=== PATIENT | female | born 2000 | race African-American/Black ===

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

== ENCOUNTER 2021-01-04 00:02 | Emergency (ER) | payer BC, OTHER ==
[~2021-01-04] VITALS: Ht 160 cm; Wt 86.2 kg
[~2021-01-04 00:02] MED LIST changes: +REGLAN 10 MG TA10 MG PO
[2021-01-04 01:07] LABS: HEMATOCRIT 52.3 % (37.0-47.0); MCHC 32.5 g/dL (28.0-37.0); MCV 92.5 fL (80.0-100.0); PLATELET COUNT 396 thou/uL (150-400); RBC 5.66 mil/uL (4.20-5.00); RDW 13.6 % (10.5-14.5); WBC 20.5 thou/uL (4.0-11.0)
[2021-01-04 01:12] LABS: CALCIUM 10.3 mg/dL (8.5-10.1); POTASSIUM 5.5 mmol/L (3.5-5.1)
[2021-01-04 01:49] LABS: ABSOLUTE NEUTROPHILS 18.7 thou/uL (1.4-8.2); ANISOCYTOSIS 1+; PLATELET ESTIMATE NORMAL; POIKILOCYTOSIS 1+
[2021-01-04] MEDS ORDERED: APAP W/CODEINE1 TA2 PO (03:18)
[2021-01-04] MEDS ORDERED: ONDANSETRON HCL4 M2 PO (03:18)
[2021-01-04 03:23] VITALS: BP 112/75
== END 2021-01-04 03:23 | disposition home or self-care (01) ==
LOC: ER 00:02
PROVIDERS: Emergency Medicine
DX: R10.13 Epigastric pain (principal); E10.9 Type 1 diabetes mellitus without complications; Z90.49 Acquired absence of other specified parts of digestive tract; Z79.4 Long term (current) use of insulin; Z79.899 Other long term (current) drug therapy; Z88.6 Allergy status to analgesic agent

== ENCOUNTER 2021-01-05 23:51 | Emergency (ER) | payer BC, OTHER ==
[~2021-01-05] VITALS: Ht 167.6 cm; Wt 68.0 kg
[~2021-01-05 23:51] MED LIST changes: +APAP W/CODEINE1 TA2 PO; +ONDANSETRON HCL4 M2 PO
[2021-01-06 00:50] VITALS: BP 106/54
[2021-01-06 01:44] LABS: CALCIUM 9.9 mg/dL (8.5-10.1); CREATININE 0.7 mg/dL (0.6-1.0); POTASSIUM 3.7 mmol/L (3.5-5.1)
[2021-01-06 01:50] LABS: ALBUMIN 4.7 g/dL (3.4-5.0); TOTAL BILIRUBIN 1.2 mg/dL (0.2-1.0); TOTAL PROTEIN 9.1 g/dL (6.4-8.2)
[2021-01-06 02:43] LABS: ABSOLUTE NEUTROPHILS 9.8 thou/uL (1.4-8.2); BASOPHILS 0.8 % (0.0-2.0); HEMATOCRIT 41.2 % (37.0-47.0); LYMPHOCYTES 6.7 % (24.0-44.0); MCH 30.5 pg (26.0-34.0); MCV 89.6 fL (80.0-100.0); MONOCYTES 1.2 % (1.0-8.0); POLYS 91.3 % (36.0-66.0); RDW 13.5 % (10.5-14.5); WBC 10.8 thou/uL (4.0-11.0)
[2021-01-06 02:50] LABS: PLATELET COUNT 320 thou/uL (150-400)
[2021-01-06] MEDS ORDERED: XANAX 0.25 MG0.25 MG PO (03:32)
== END 2021-01-06 03:58 | disposition home or self-care (01) ==
LOC: ER 23:51
PROVIDERS: Emergency Medicine
DX: R11.10 Vomiting, unspecified (principal); E10.9 Type 1 diabetes mellitus without complications; Z79.899 Other long term (current) drug therapy; Z88.6 Allergy status to analgesic agent

== ENCOUNTER 2021-01-15 18:07 | Emergency (ER) | payer BC, OTHER ==
[~2021-01-15] VITALS: Ht 160 cm; Wt 81.7 kg
[~2021-01-15 18:07] MED LIST changes: +XANAX 0.25 MG0.25 MG PO
[2021-01-15 19:05] LABS: CALCIUM 9.8 mg/dL (8.5-10.1); CREATININE 0.6 mg/dL (0.6-1.0)
[2021-01-15 19:11] LABS: ALBUMIN 4.5 g/dL (3.4-5.0); DIRECT BILIRUBIN 0.1 mg/dL (<0.1-0.2); TOTAL BILIRUBIN 0.5 mg/dL (0.2-1.0); TOTAL PROTEIN 8.1 g/dL (6.4-8.2)
[2021-01-15 19:19] LABS: POTASSIUM 4.2 mmol/L (3.5-5.1)
[2021-01-15 20:44] LABS: HEMATOCRIT 42.4 % (37.0-47.0); HEMOGLOBIN 14.5 gm/dL (12.0-15.0); LYMPHOCYTES 3.9 % (24.0-44.0); MCHC 34.3 g/dL (28.0-37.0); MCV 90.3 fL (80.0-100.0); MONOCYTES 0.9 % (1.0-8.0); PLATELET COUNT 320 thou/uL (150-400); POLYS 95.2 % (36.0-66.0); RBC 4.69 mil/uL (4.20-5.00); RDW 13.6 % (10.5-14.5)
[2021-01-15] MEDS ORDERED: REGLAN 10 MG TA10 MG PO (22:19)
[2021-01-15] MEDS ORDERED: ZOFRAN ODT4 MG PO (22:19)
[2021-01-15 22:41] VITALS: BP 95/56
== END 2021-01-15 22:30 | disposition home or self-care (01) ==
LOC: ER 18:07
PROVIDERS: Nurse Practitioner
DX: R10.84 Generalized abdominal pain (principal); R11.2 Nausea with vomiting, unspecified; F12.90 Cannabis use, unspecified, uncomplicated; E10.9 Type 1 diabetes mellitus without complications; Z88.6 Allergy status to analgesic agent; Z90.49 Acquired absence of other specified parts of digestive tract; Z86.718 Personal history of other venous thrombosis and embolism

== ENCOUNTER 2021-04-05 16:19 | Inpatient (IN) | payer BC, OTHER ==
[~2021-04-05] VITALS: Ht 160 cm; Wt 68.5 kg
[~2021-04-05 16:19] MED LIST changes: +ZOFRAN ODT4 MG PO
[2021-04-05 17:02] VITALS: BP 154/103
[2021-04-05 18:49] LABS: ABSOLUTE NEUTROPHILS 11.1 thou/uL (1.4-8.2); BASOPHILS 0.5 % (0.0-2.0); HEMATOCRIT 47.8 % (37.0-47.0); HEMOGLOBIN 16.2 gm/dL (12.0-15.0); LYMPHOCYTES 10.1 % (24.0-44.0); MCH 31.7 pg (26.0-34.0); MCV 93.1 fL (80.0-100.0); MONOCYTES 4.4 % (1.0-8.0); PLATELET COUNT 384 thou/uL (150-400); RBC 5.13 mil/uL (4.20-5.00); RDW 14.4 % (10.5-14.5)
[2021-04-05 19:03] LABS: ALBUMIN 4.7 g/dL (3.4-5.0); CALCIUM 9.6 mg/dL (8.5-10.1); CREATININE 0.9 mg/dL (0.6-1.0); POTASSIUM 4.3 mmol/L (3.5-5.1); TOTAL BILIRUBIN 1.4 mg/dL (0.2-1.0); TOTAL PROTEIN 8.6 g/dL (6.4-8.2)
[2021-04-05 21:58] LABS: URINE BILIRUBIN 1+ (Negative); URINE BLOOD 1+ (Negative); URINE CLARITY CLEAR; URINE COLOR YELLOW; URINE GLUCOSE-RANDOM* 2+ (Negative); URINE KETONES 3+ (Negative); URINE LEUKOCYTES-REFLEX NEGATIVE (Negative); URINE NITRITE-REFLEX NEGATIVE (Negative); URINE PROTEIN (DIPSTICK) 1+ (Negative); URINE SPECIFIC GRAVITY >= 1.030 (1.005-1.035); URINE UROBILINOGEN 0.2 E.U./dl (0.2-1.0)
[2021-04-05 22:47] LABS: SQUAMOUS 4-10 Moderate /LPF (0-3)
[2021-04-05 22:48] LABS: BACTERIA-REFLEX 1-9 Few /HPF (None Seen); CRYSTALS None Seen /LPF (None Seen); HYALINE CASTS 0-3 Few /LPF (None Seen); MUCUS 0-3 Light strn/LPF (None Seen); URINE RBC 3-10 Few /HPF (NONE SEEN); URINE WBC-REFLEX 0-5 Rare /HPF (0-5)
[2021-04-05 22:54] LABS: BE(vivo) -19.5 mmol/L (-2 to +3); HCO3 6.2 mmol/L (22.0-26.0); PO2 VENOUS 86.4 mmHg (35.0-45.0)
[2021-04-06] VITALS (47 sets, daily range): BP systolic 89–151; BP diastolic 17–100
[2021-04-06 02:27] LABS: ALBUMIN 4.1 g/dL (3.4-5.0); CALCIUM 8.7 mg/dL (8.5-10.1); MAGNESIUM 1.9 mg/dL (1.8-2.4); PHOSPHORUS 2.4 mg/dL (2.6-4.7); POTASSIUM 4.3 mmol/L (3.5-5.1)
[2021-04-06 06:41] LABS: ALBUMIN 3.6 g/dL (3.4-5.0); CREATININE 0.9 mg/dL (0.6-1.0); MAGNESIUM 1.9 mg/dL (1.8-2.4); PHOSPHORUS 1.4 mg/dL (2.5-4.9); POTASSIUM 3.5 mmol/L (3.5-5.1)
--- NOTE | 2021-04-06 07:17 | EKG ---
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: RAJAT HAMMOND : 2000 Requested By: Deondre Montenegro Order Number: [id number] MD: Joseph Galarza Measurements Intervals [place] Rate: 115 P: 69 NV: 132 QRS: 75 QRSD: 84 T: 61 QT: 313 QTc: 433 Interpretive Statements Sinus tachycardia Compared to ECG 08/01/2020 21:30:18 Sinus rhythm no longer present Electronically Signed On 04-06-2021 7:17:49 ROLL FORGER by Joseph Galarza [email or web address] <ELECTRONICALLY SIGNED> By: Joseph Galarza MD, [facility] 04/06/21 0717 D: [id number] Joseph Galarza MD, FACC /EPI
[2021-04-06 09:17] LABS: ALBUMIN 3.9 g/dL (3.4-5.0); CALCIUM 8.9 mg/dL (8.5-10.1); CREATININE 0.8 mg/dL (0.6-1.0); PHOSPHORUS 1.5 mg/dL (2.6-4.7); POTASSIUM 3.6 mmol/L (3.5-5.1)
--- NOTE | 2021-04-06 10:02 | NUR ---
ASSUMED CARE OF PT AT 0700. PT ALERT AND ORIENTED TIMES FOUR FLAT AFFECT. VSS, IVF AND INSULIN GTT INFUSING PER ORDER. PT C/O PAIN AND NAUSEA PRN MEDS GIVEN PT NOW RESTING. WILL CONTINUE TO MONITOR.
[2021-04-06 14:28] LABS: HEMATOCRIT 43.9 % (37.0-47.0); HEMOGLOBIN 15.2 gm/dL (12.0-15.0); MCH 31.9 pg (26.0-34.0); MCHC 34.7 g/dL (28.0-37.0); MCV 91.8 fL (80.0-100.0); RBC 4.78 mil/uL (4.20-5.00); RDW 14.7 % (10.5-14.5); WBC 10.6 thou/uL (4.0-11.0)
[2021-04-06 14:41] LABS: ALBUMIN 3.8 g/dL (3.4-5.0); CREATININE 0.7 mg/dL (0.6-1.0); MAGNESIUM 1.9 mg/dL (1.8-2.4); PHOSPHORUS 1.4 mg/dL (2.6-4.7); POTASSIUM 3.5 mmol/L (3.5-5.1); TOTAL BILIRUBIN 1.5 mg/dL (0.2-1.0)
[2021-04-06 17:51] LABS: ALBUMIN 3.5 g/dL (3.4-5.0); CALCIUM 8.8 mg/dL (8.5-10.1); CREATININE 0.8 mg/dL (0.6-1.0); MAGNESIUM 1.8 mg/dL (1.8-2.4); POTASSIUM 3.4 mmol/L (3.5-5.1)
[2021-04-06 21:42] LABS: ALBUMIN 3.3 g/dL (3.4-5.0); CALCIUM 8.2 mg/dL (8.5-10.1); CREATININE 0.7 mg/dL (0.6-1.0); MAGNESIUM 1.6 mg/dL (1.8-2.4); PHOSPHORUS 1.3 mg/dL (2.5-4.9); POTASSIUM 3.1 mmol/L (3.5-5.1)
[2021-04-07] VITALS (39 sets, daily range): BP systolic 96–137; BP diastolic 49–93
[2021-04-07 05:30] LABS: ABSOLUTE NEUTROPHILS 4.1 thou/uL (1.4-8.2); BASOPHILS 0.4 % (0.0-2.0); EOSINOPHILS 0.5 % (0.0-3.0); HEMATOCRIT 40.1 % (37.0-47.0); HEMOGLOBIN 13.5 gm/dL (12.0-15.0); LYMPHOCYTES 45.9 % (24.0-44.0); MCH 31.6 pg (26.0-34.0); MCHC 33.6 g/dL (28.0-37.0); MCV 94.3 fL (80.0-100.0); MONOCYTES 7.3 % (1.0-8.0); PLATELET COUNT 276 thou/uL (150-400); POLYS 45.9 % (36.0-66.0); RBC 4.25 mil/uL (4.20-5.00); RDW 14.3 % (10.5-14.5); WBC 8.9 thou/uL (4.0-11.0)
[2021-04-07 05:44] LABS: ALBUMIN 3.2 g/dL (3.4-5.0); CALCIUM 8.2 mg/dL (8.5-10.1); CREATININE 0.5 mg/dL (0.6-1.0); MAGNESIUM 2.3 mg/dL (1.8-2.4); TOTAL BILIRUBIN 1.9 mg/dL (0.2-1.0); TOTAL PROTEIN 5.7 g/dL (6.4-8.2)
[2021-04-07 06:27] LABS: POTASSIUM 4.8 mmol/L (3.5-5.1)
[2021-04-07 07:09] LABS: GLYCOHEMOGLOBIN (HGB A1C) 12.2 % (4.8-5.6)
--- NOTE | 2021-04-07 07:31 | NUR ---
ASSUME CARE 1900. PT/VITALS STABLE. DENEIS ANY PAIN/N/V. UP AD DAGOBERTO/STEADY ON FEET. NO DISTRESS NOTED THROUGH SHIFT. ASSSESSMENT CHARTED. PROGRESSING WELL WITH POC. SR ON MONITOR. INSULIN DRIP GOING/SUGARS STABLE/ANION GAP CLOSED/ELECTROLYTES STABILIZING. PLAN IS TO CONTINUE TO MONITOR BLOOD GLUCOSE AND EVENTUALLY TAKE PT OFF INSULIN DRIP. WILL CONTINUE TO MONITOR AND FOLLOW WITH POC
[2021-04-07 15:57] LABS: CALCIUM 8.6 mg/dL (8.5-10.1); CREATININE 0.6 mg/dL (0.6-1.0)
[2021-04-07 16:11] LABS: POTASSIUM 3.2 mmol/L (3.5-5.1)
[2021-04-08] VITALS (29 sets, daily range): BP systolic 85–125; BP diastolic 45–83
[2021-04-08 10:58] LABS: CALCIUM 8.9 mg/dL (8.5-10.1); CREATININE 0.5 mg/dL (0.6-1.0)
--- NOTE | 2021-04-08 12:29 | NUR ---
I gave pt apple juice both times pt was hypogycemic today. Pt A&O x4
--- NOTE | 2021-04-08 15:04 | NUR ---
DC'd pt home with boyfriend. IV removed earlier in the day. All belongings given back to pt. Flu shot given at discharge. Dc instructions given. All questions answered.
== END 2021-04-08 14:30 | disposition home or self-care (01) | DRG 639 ==
LOC: ER 16:19 → ICU 23:39 → EROBS 23:39 → ICU 04-06 00:22
PROVIDERS: Internal Medicine; Nurse Practitioner; Nurse Practitioner Family; ADMIT Pediatrics; ATTEND Pediatrics
DX: E10.10 Type 1 diabetes mellitus with ketoacidosis without coma (principal); Z79.4 Long term (current) use of insulin; Z88.8 Allergy status to other drugs, medicaments and biological substances; K21.9 Gastro-esophageal reflux disease without esophagitis; Z86.718 Personal history of other venous thrombosis and embolism; Z79.01 Long term (current) use of anticoagulants; Z20.822 Contact with and (suspected) exposure to COVID-19; Z90.49 Acquired absence of other specified parts of digestive tract
CPT/HCPCS: 10078